=== PATIENT | male | born 1965 | race Caucasian/White ===

== ENCOUNTER 2017-05-05 10:20 | Emergency (ER) | payer BC ==
[~2017-05-05] VITALS: Ht 172.7 cm; Wt 86.2 kg
[2017-05-05] MEDS ORDERED: Bactroban Oint22 GM T (10:48)
[2017-05-05] MEDS ORDERED: Bactrim DS PO (10:48)
[2017-05-05] MEDS ORDERED: KEFLEX500 M1 PO (10:48)
== END 2017-05-05 11:30 | disposition home or self-care (01) ==
LOC: ED 10:20
DX: T24.531A Corrosion of first degree of right lower leg, initial encounter (principal); R03.0 Elevated blood-pressure reading, without diagnosis of hypertension; T65.891A Toxic effect of other specified substances, accidental (unintentional), initial encounter; Y92.9 Unspecified place or not applicable